=== PATIENT | female | born 1950 | race Caucasian/White ===

== ENCOUNTER 2022-12-03 12:46 | Emergency (ER) | payer MEDICARE, SELFPAY ==
[2022-12-03] VITALS (14 sets, daily range): BP systolic 154–181; BP diastolic 83–96; PULSE 84–86; RESP 18; TEMP 36.1; O2SAT 89–96; BMI 32.4
--- NOTE | 2022-12-03 13:26 | ED.NURSE ---
dr alba did exam and refused to have a ct scan done. here with pt.
--- NOTE | 2022-12-03 13:28 | ED_ITS ---
HPI - General Adult General Time Seen by Provider: 13:28 Date Seen: 12/03/22 Chief complaint: Dizziness/Vertigo Stated complaint: Lightheaded and vomiting Time Seen by Provider: 12/03/22 13:20 Source: patient Limitations: physical limitation History of Present Illness HPI narrative: Patient is a 72 year white female that about 10:00 a.m. this morning about 3-1/2 hours ago developed vertigo and dizziness. She has been nauseated has vomited. She denies chest pain breathing problem recent illness. Denies shortness of breath, denies leg swelling or edema. She has not had any history of benign positional vertigo or vertigo in the past. She was up moving about when this occurred, but no trauma no fall no injury no heavy lifting. Patient presents with her family to the emergency department for treatment of her vertigo. Related Data Allergies Allergy/AdvReac Type Severity Reaction Status Date / Time Sulfa (Sulfonamide Allergy Verified 12/03/22 13:09 Antibiotics) Review of Systems Status of ROS: Reports: 6 or more systems reviewed and unremarkable except as noted in History and below PFSH PFS Social History Smoking Status: Current every day smoker What tobacco products do you use: cigarettes Smoking packs per day: 50 Smoking cigarettes per day: 1,000.0 Do you use any of these nicotine containing products: None Second hand tobacco smoke exposure: No How often do you have a drink containing alcohol: 2-3 times a week How many standard drinks containing alcohol do you have on a typical day: 1 or 2 How often do you have six or more drinks on one occasion: Never AUDIT-C Alcohol total score: 3 Non-prescribed substance use: denies use Exam Narrative: Exam Narrative: Objective: Patient's vital signs look unremarkable, she is alert orient x3 keeps her eyes closed, she has a occasional retching, she keeps a bag closed her mouth HEENT shows pupils react to light extraocular movements intact mouth is clear no facial asymmetry neck is supple chest is clear heart rhythm regular heart murmur extremities are no edema neurologic nonfocal good peripheral perfusion noted on HEENT exam the patient does have some mild lateral nystagmus bilaterally. Const: Vital Signs, click to edit/add: Vital Signs - 24 hr 12/03/22 13:10 12/03/22 13:58 12/03/22 14:00 Temperature 96.9 F L Pulse Rate 84 85 Pulse Rate [Pulse Oximeter] 86 Respiratory Rate 18 Blood Pressure [Le ft Forearm] 154/83 H Pulse Oximetry 93 94 93 Oxygen Delivery Me thod Room Air Course Vital Signs Vital signs: Initial Vital Signs Temperature 96.9 F L 12/03/22 13:10 Temperature Source Temporal Artery Scan 12/03/22 13:10 Pulse Rate 86 12/03/22 13:10 Pulse Rhythm 12/03/22 13:10 Respiratory Rate 18 12/03/22 13:10 Blood Pressure 154/83 H 12/03/22 13:10 Blood Pressure Mean 106 12/03/22 13:10 Blood Pressure Position Supine 12/03/22 13:10 Pulse Oximetry 93 12/03/22 13:10 Oxygen Delivery Method 12/03/22 13:10 Vital Signs Temperature 96.9 F L 12/03/22 13:10 Pulse Rate 86 12/03/22 13:10 Respiratory Rate 18 12/03/22 13:10 Blood Pressure 154/83 H 12/03/22 13:10 Pulse Oximetry 93 12/03/22 13:10 Oxygen Delivery Method 12/03/22 13:10 Temperature 96.9 F L 12/03/22 13:10 Pulse Rate 85 12/03/22 14:00 Respiratory Rate 18 12/03/22 13:10 Blood Pressure 154/83 H 12/03/22 13:10 Pulse Oximetry 93 12/03/22 14:00 Oxygen Delivery Method 12/03/22 13:10 Medical Decision Making [facility] Narrative Medical decision making narrative: Patient is a 72-year-old white female with episode of vertigo, she has had significant nausea and dizziness. She has no chest pain or other worrisome stigmata of illness. No headache. The patient reports at this time she would accept some blood work and IV fluid and some IV medicine for the dizziness, but declines a CT scan. I think she is able to make that decision her family is present as well when she declined to CT. Hopefully the patient's symptoms can be alleviated, will check a EKG as mention laboratory studies, IV fluid, IV anti nausea medicine as well. Disposition pending her clinical response Addendum: Patient is feeling much better after Ativan and Zofran. An IV fluid. Her electrolytes and labs look pretty reassuring her troponin is negative. Patient at this point I suggest she still get a CT scan of her head she wishes to do that this be done unenhanced make sure she does not have any tumor stroke bleed. She does feel better as mention. Addendum the patient's head CT by my read looks unremarkable radiology confirms. The patient's labs look reassuring glucose nonfasting a slightly elevated troponin is negative CRP is negative. Patient feels markedly better after fluids Zofran and Ativan she has no further nystagmus she is awake looking around does not feel nauseated. I think at this point because the medications could be sedating and cause other issues I would just simply recommend observation fluids light activity and recheck with regular doctor next couple of days if problems or concerns, also return to the ED sooner as needed. I suspect she has a mild viral induced labyrinthitis or benign positional vertigo Lab Data Labs: Lab Results 12/03/22 12/03/22 Range/Units 13:40 13:40 WBC 10.75 (4.50-11.00) K/uL RBC 4.64 (4.00-5.20) m/uL Hgb 14.0 (12.0-16.0) gm/dL Hct 43.0 (33.0-51.0) % MCV 93 (80-100) fL MCH 30 (26-34) pg MCHC 33 (32-36) gm/dL RDW Coeff of Alycia 13.3 (11.5-15.5) % Plt Count 267 (140-440) K/uL Neut % (Auto) 78.2 H (42.0-72.0) % Lymph % (Auto) 15.3 L (20-44) % [place] % (Auto) 5.8 (0.0-11.0) % Eos % (Auto) 0.2 (0.0-7.0) % Baso % (Auto) 0.2 (0.0-3.0) % Neut # (Auto) 8.40 H (1.7-7.0) K/uL Lymph # (Auto) 1.60 (0.90-2.90) K/uL [place] # (Auto) 0.60 (0.00-0.90) K/UL Eos # (Auto) 0.02 (0.00-0.50) K/uL Baso # (Auto) 0.02 (0.00-0.30) K/uL Sodium 137 (135-149) mmol/L Potassium 4.0 (3.6-5.1) mmol/L Chloride 101 (96-114) mmol/L Carbon Dioxide 30 (20-32) mmol/L BUN 15 (7-30) mg/dL Creatinine 0.6 (0.5-1.5) mg/dL Estimated Creat Clear 44.41 Estimated GFR 94 ml/min Glucose 158 H (60-115) mg/dL Calcium 9.4 (8.4-10.6) mg/dL Total Bilirubin 0.6 (0.1-1.5) mg/dL Direct Bilirubin 0.1 (0.0-0.5) mg/dL AST 22 (12-35) U/L ALT 21 (4-35) U/L Alkaline Phosphatase 77 (40-150) U/L Troponin I < 0.01 L (0.01-0.04) ng/mL C-Reactive Protein 0.6 (0.5-1.0) mg/dL NT-Pro-B Natriuret Pep 134 pg/mL Total Protein 7.4 (6.0-8.3) g/dL Albumin 4.4 (3.3-5.0) g/dL Discharge Plan Discharge Clinical Impression: Vertigo Patient Disposition: Home w/ Parent or Adult Condition: Improved Instructions: Vertigo (ED) Additional Instructions: Rest, light activity, fluids, Tylenol as needed, the patient is much better at this time. Recommend observation. Would hold on other medications as they could be sedating and cause her to fall. Would recommend update the regular doctor in the next 48 hours certainly return to the ED sooner problems concerns or recurrence. Activity Level: Light activity Discharge Diet: Regular Stand Alone Forms: MyHealth Info Instructions
[2022-12-03 13:54] LABS: Basophils Absolute Auto 0.02 K/uL (0.00-0.30); Basophils Percent Auto 0.2 % (0.0-3.0); Eosinophils Absolute Auto 0.02 K/uL (0.00-0.50); Eosinophils Percent Auto 0.2 % (0.0-7.0); Immature Granulocytes Abs Auto 0.03 K/uL (0.00-0.30); Immature Granulocytes Pct Auto 0.3 %; Lymphocytes Percent Auto 15.3 % (20-44); Mean Corpuscular HGB Conc 33 gm/dL (32-36); Mean Corpuscular Hemoglobin 30 pg (26-34); Mean Corpuscular Volume 93 fL (80-100); Monocytes Percent Auto 5.8 % (0.0-11.0); Neutrophils Percent Auto 78.2 % (42.0-72.0); Platelet Count* 267 K/uL (140-440); RDW Coefficient of Variation % 13.3 % (11.5-15.5); Red Blood Count 4.64 m/uL (4.00-5.20); White Blood Count* 10.75 K/uL (4.50-11.00)
[2022-12-03 14:03] LABS: Chloride* 101 mmol/L (96-114)
[2022-12-03 14:04] LABS: Albumin* 4.4 g/dL (3.3-5.0); Sodium* 137 mmol/L (135-149)
[2022-12-03 14:06] LABS: Creatinine* 0.6 mg/dL (0.5-1.5); Est. Creatinine Clearance* 44.41; Estimated Glomerular Filt Rate 94 ml/min
[2022-12-03 14:07] LABS: Alanine Aminotransferase* 21 U/L (4-35); Alkaline Phosphatase* 77 U/L (40-150); Aspartate Amino Transferase* 22 U/L (12-35); Bilirubin Direct* 0.1 mg/dL (0.0-0.5); Bilirubin Total* 0.6 mg/dL (0.1-1.5); Blood Urea Nitrogen* 15 mg/dL (7-30); Carbon Dioxide* 30 mmol/L (20-32); Glucose* 158 mg/dL (60-115); Slide Review Reflex No; Total Protein* 7.4 g/dL (6.0-8.3)
[2022-12-03 14:08] LABS: Calcium* 9.4 mg/dL (8.4-10.6)
[2022-12-03] MEDS: LORazepam 2 MG/ML inj 0.5 MG IVP (14:08)
[2022-12-03] MEDS: ONDANSETRON 2 MG/ML inj 4 MG IVP (14:08)
[2022-12-03] MEDS: 0.9 % SODIUM CHLORIDE 500 ML 500 ML IV (14:09)
[2022-12-03 14:10] LABS: C Reactive Protein* 0.6 mg/dL (0.5-1.0)
[2022-12-03 14:39] LABS: NT Pro B Type NatriureticPept* 134 pg/mL; Troponin I* < 0.01 ng/mL (0.01-0.04)
--- NOTE | 2022-12-03 14:58 | CRLHL7_ITS ---
For Patients: As a result of the Century Cures Act, medical imaging exams and procedure reports are released immediately into your electronic medical record. You may view this report before your referring provider. If you have questions, please contact your health care provider. INDICATION: Vertigo. TECHNIQUE: Noncontrast CT images acquired through the brain. COMPARISON: None. FINDINGS: Mild diffuse cerebral volume loss. No mass effect or midline shift. The espinosa-white differentiation is maintained. No acute intracranial hemorrhage or pathologic extra-axial fluid collection. Chronic lacunar infarction or prominent prevascular space in the right caudate nucleus head. No acute intracranial hemorrhage or pathologic extra-axial fluid collection. Intracranial atherosclerotic calcifications. The globes are symmetric. The calvarium is intact. Moderate left maxillary sinus retention cyst or polyp. The mastoid air cells are clear. Moderately advanced bilateral temporomandibular joint degenerative changes. IMPRESSION: No acute intracranial hemorrhage or mass effect. Please note that all CT scans at this facility use dose modulation, iterative reconstruction, and/or weight-based dosing when appropriate to reduce radiation dose to as low as reasonably achievable. Dictated by Pan Watkins MD @ 12/03/2022 3:41:20 PM (Electronically Signed)
== END 2022-12-03 16:26 | disposition home or self-care (01) ==
PROVIDERS: Emergency Provider Family Medicine; PCP Family Medicine
DX: R42 Dizziness and giddiness (principal)
CPT/HCPCS: 36415; 70450; 80048; 80076; 83880; 84484; 85025; 86140; 93005; 94761; 96374; 96375; 99284; 99285; J2060; J2405; J7120

== ENCOUNTER 2022-12-15 16:00 | Outpatient (RCR) | payer MEDICARE, SELFPAY | END 2023-04-13 23:59 | disposition home or self-care (01) | PROVIDERS: PCP Family Medicine; Visit Provider Student in an Organized Health Care Education/Training Program | DX: H81.10 Benign paroxysmal vertigo, unspecified ear (principal); Z51.89 Encounter for other specified aftercare | CPT/HCPCS: 97112; 97162 ==

== ENCOUNTER 2025-07-07 13:50 | Outpatient (CLI) | payer MEDICARE, SELFPAY | END 2025-07-07 13:51 | disposition home or self-care (01) | LOC: NFLDREF 07-19 12:05 | PROVIDERS: PCP Family Medicine; Referring Provider Family Medicine | DX: N30.01 Acute cystitis with hematuria (principal) | CPT/HCPCS: 87086 ==